=== PATIENT | female | born 1985 | race Caucasian/White ===

== ENCOUNTER 2018-05-22 08:49 | Emergency (ER) | payer OTHER ==
--- NOTE | 2018-05-22 10:24 | XRAY Report ---
Procedure Date: 05/22/2018 Accession Number: [id number] / [id number] Procedure: XR - Elbow 3 View LT CPT Code: FULL RESULT: EXAM: LEFT ELBOW RADIOGRAPHY EXAM DATE: 05/22/2018 09:51 AM. CLINICAL HISTORY: Fall onto left arm. COMPARISON: Left wrist today. TECHNIQUE: 3 views. FINDINGS: Bones: Acute fracture of the capitellum. The capitellum is rotated 90 degrees anteriorly and displaced anteriorly, no longer articulating with the radial head. Proximal radius and ulna are intact. Joints: Moderate elbow joint effusion. Disrupted radiocapitellar joint, as noted above. Soft Tissues: Normal. No soft tissue swelling. IMPRESSION: Acute fracture of the capitellum. The capitellum is rotated 90 degrees anteriorly and displaced anteriorly, no longer articulating with the radial head. RADIA
--- NOTE | 2018-05-22 10:25 | XRAY Report ---
Procedure Date: 05/22/2018 Accession Number: [id number] / [id number] Procedure: XR - Wrist 3 View LT CPT Code: FULL RESULT: EXAM: LEFT WRIST RADIOGRAPHY EXAM DATE: 05/22/2018 09:51 AM. CLINICAL HISTORY: Fell on wrist. COMPARISON: Left wrist today. TECHNIQUE: 3 views. FINDINGS: Bones: Normal. No fractures or bone lesions. Joints: Normal. No subluxations. Soft Tissues: Normal. No soft tissue swelling. IMPRESSION: Normal wrist radiography. RADIA
[2018-05-22] MEDS ORDERED: oxyCOD/ACETAMIN 5 MG/325 MG TABLET PO STA (10:58)
[2018-05-22] MEDS ORDERED: KETOROLAC 60 MG/2 ML VIAL IM STA (11:07)
--- NOTE | 2018-05-22 11:07 | ED Physician Documentation ---
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 - Present Medications Home Medications: Ambulatory Orders Medication Instructions Recorded Confirmed Levothyroxine [Synthroid] 200 mcg PO DAILY 09/06/15 05/22/18 Ibuprofen [Motrin] 400 mg PO Q6H PRN #20 tablet 05/22/18 Oxycodone HCl/Acetaminophen 1 each PO Q6HR PRN #15 tablet 05/22/18 [Percocet 5-325 mg Tablet] Venlafaxine [Effexor] 1 tab PO DAILY 05/22/18 05/22/18 - Allergies Allergies/Adverse Reactions: Allergies Allergy/AdvReac Type Severity Reaction Status Date / Time Sulfa (Sulfonamide Allergy Edema Verified 05/22/18 10:21 Antibiotics) - Social History Does the pt smoke?: No Smoking Status: Never smoker Does the pt drink ETOH?: No Does the pt have substance abuse?: No - Immunizations Immunizations are current?: No - POLST Patient has POLST: No PD ED PE NORMAL - Vitals Vital signs reviewed: Yes - Cardiac Cardiac: RRR - Respiratory Respiratory: No respiratory distress, Clear bilaterally - Extremities Extremities: Other (LUE" shoulder and wrist NT, TTP lateral elbow, very limited ROM, + effuson) Results - Vitals Vitals: Vital Signs - 24 hr 05/22/18 09:08 Temperature 36.5 C Heart Rate 90 Respiratory 16 Rate Blood Pressure 133/87 H O2 Saturation 98 Oxygen O2 Source Room air - Rads (name of study) wrist Radiology: See rad report (normal) elbow Radiology: See rad report (acute fx capitellum and it is completely displaced anterior and rotated 90 degrees) PD MEDICAL DECISION MAKING - ED course ED course: pt seen by Dr Lutz ortho he supervised her splint he needs a special screw for her surgery and cannot oeprate until tomorrow pt to be dced with pain meds to go straight across street to ortho office for preop - Sepsis Event Vital Signs: Vital Signs - 24 hr 05/22/18 09:08 Temperature 36.5 C Heart Rate 90 Respiratory 16 Rate Blood Pressure 133/87 H O2 Saturation 98 Oxygen O2 Source Room air Departure - Departure Disposition: 01 Home, Self Care Clinical Impression: Elbow fracture, left Qualifiers: Encounter type: initial encounter Fracture type: closed Qualified Code(s): S42.402A - Unspecified fracture of lower end of left humerus, initial encounter for closed fracture Condition: Good Instructions: ED Fx Elbow, ED Splint Care Fiberglass Follow-Up: Sarath Lutz MD [Provider Admit Priv/Credential] - (go there right now for pre-op intake ) Prescriptions: Oxycodone HCl/Acetaminophen [Percocet 5-325 mg Tablet] 1 each PO Q6HR PRN #15 tablet PRN Reason: Severe Pain Ibuprofen [Motrin] 400 mg PO Q6H PRN #20 tablet PRN Reason: Pain
[2018-05-22 12:09] VITALS: BP 134/90
--- NOTE | 2018-05-22 17:00 | CONSULTATION NOTE ---
DATE OF SERVICE: 05/22/2018 Physician: Sarath Lutz MD EMERGENCY ROOM CONSULTATION NOTE AND PREOPERATIVE HISTORY AND PHYSICAL NOTE REQUESTING PHYSICIAN: Kasie Morales MD REASON FOR CONSULTATION: Left elbow injury. HISTORY OF PRESENT ILLNESS: Patient is a 33-year-old female who suffered a fall on an outstretched a rm today, injuring her left elbow. The patient reports that she simply turned her head away as she w as walking and stumbled and went down on her outstretched left arm causing elbow injury. Patient pre sented to the emergency room by private vehicle complaining of elbow and arm pain. PAST MEDICAL HISTORY: Patient's prior medical history is reviewed and the patient has had hypothyroi dism. She has anxiety. MEDICATIONS: She is on some medications includin. Levothyroxine 200 mcg p.o. daily. 2. Ibuprofen 400 mg q.6h. p.r.n. 3. Effexor 1 tab p.o. daily. PAST SURGICAL HISTORY: Patient's prior surgeries include . ALLERGIES: SULFA ANTIBIOTICS CAUSING EDEMA. SOCIAL HISTORY: The patient does not smoke and does not drink. She is and has children. He r is presently deployed in [facility]. REVIEW OF SYSTEMS: Negative. Patient has not had recent illness and has been in good physical condi tion in general. PHYSICAL EXAMINATION GENERAL: Patient's physical exam shows her to be alert and she is not in distress. EXTREMITIES: She does complain of elbow pain. Her upper extremity on the left side does not reveal any abrasions or bruising, but there is some swelling about the elbow and tenderness at the radial he ad area and pain with movement of the elbow active and passive. The patient's opposite extremity is normal and lower extremity unremarkable. The patient is able to walk and was not medicated as I exam ined her. DIAGNOSTIC DATA: X-rays obtained reveal a 100% displaced coronal plane fracture through the capitell um with a capitellar articular segment sitting anterior to the elbow joint, which remains located. IMPRESSION: The patient has a closed and completely displaced distal humeral capitellar fracture. M y recommendation to the patient is that she have operative treatment of this injury. After an extens brant discussion with her, it was found that she had more recently had food which would delay her surge ry at least 4 hours and the appropriate headless special screw for surgery would not be available for 6-8 hours at this facility. Therefore, after discussion with her, I placed her in a splint, advised her to return home and my office would work hard with Renetta to obtain authorization for this patie nt to undergo surgery tomorrow. As an alternative, I offered this patient the option of remaining n. p.o. and presenting to a [facility] the [facility] where the screw would be readily av ailable and she could proceed directly to surgical fixation later today, and I would facilitate her d oing so if she chooses but at the present time, she is choosing to have surgery at [facility] a nd we will proceed with the initial plan of gaining authorization and surgery hopefully on 05/23/2018 . TD: 05/22/2018 13:42
== END 2018-05-22 12:22 | disposition home or self-care (01) ==
LOC: ED 08:49
DX: S42.452A Displaced fracture of lateral condyle of left humerus, initial encounter for closed fracture (principal); W01.0XXA Fall on same level from slipping, tripping and stumbling without subsequent striking against object, initial encounter; E03.9 Hypothyroidism, unspecified
CPT/HCPCS: 96372; 99283

== ENCOUNTER 2018-05-23 14:04 | Day surgery (SDC) | payer OTHER ==
[2018-05-23] MEDS ORDERED: LACTATED RINGERS 1,000 ML IV ONE ×2 (14:07→17:06)
[2018-05-23] MEDS ORDERED: ceFAZolin 2 GM/50 ML 2 GM/50 ML BAG IV ONE (14:19)
[2018-05-23] MEDS ORDERED: BUPIVACAINE 0.5%-EPI 1:200000 PF 30 ML VIAL ONE (15:09)
[2018-05-23] MEDS ORDERED: BUPIVACAINE 0.5%-EPI 1:200000 PF 30 ML VIAL SUBQ ONE (15:33)
[2018-05-23] MEDS ORDERED: PROPOFOL 200 MG/20 ML VIAL IVP ONE (16:35)
[2018-05-23] MEDS ORDERED: ROCURONIUM 50 MG/5 ML VIAL IVP ONE (16:35)
[2018-05-23] MEDS ORDERED: LIDOCAINE-MPF 2% 5 ML VIAL IM ONE (16:35)
[2018-05-23] MEDS ORDERED: fentaNYL 100 MCG/2 ML VIAL IVP ONE (16:35)
[2018-05-23] MEDS ORDERED: ONDANSETRON 4 MG/2 ML VIAL ONE (17:04)
[2018-05-23] MEDS ORDERED: ACETAMINOPHEN 1,000 MG/100 ML 100 ML IV ONE (17:10)
[2018-05-23] MEDS ORDERED: HYDROmorphone 0.5 MG/0.5 ML SYRINGE ONE (17:18)
[2018-05-23 17:36] VITALS: BP 129/94
--- NOTE | 2018-05-23 17:44 | OPERATIVE REPORT ---
DATE OF SERVICE: 05/23/2018 Physician: Sarath Lutz MD PREOPERATIVE DIAGNOSIS: Displaced left elbow capitellar fracture. POSTOPERATIVE DIAGNOSIS: Displaced left elbow capitellar fracture. PROCEDURE PERFORMED: Open reduction internal fixation of left elbow capitellum fracture. OPERATING SURGEON: Sarath Lutz MD ANESTHESIA: General by Dr. Almanzar. INDICATIONS FOR SURGERY: Patient is a 32-year-old female status post a fall on her left arm yesterda y suffering a completely displaced fracture of the capitellum articular surface. The patient was see n and evaluated and prepared for surgery, and special instruments were brought in for planned surgery today. The patient did not have neurologic compromise, but had pain in her elbow after the fracture and was immobilized. She had not had previous elbow problems. FINDINGS AT SURGERY: Patient's elbow had a displaced capitellum sitting in the superior aspect and a nterior aspect of the joint. There was no damage to the radial head and the joint was located. Othe rwise, the fragment was tethered by a small ligamentous or soft tissue attachment which was not divid ed. The elbow was full of hemorrhage and most of it clotted. DESCRIPTION OF OPERATIVE PROCEDURE: Patient was taken to the operating room. She was given a genera l anesthetic. She was positioned supine. Her left elbow was sterilely prepped and draped in standar d fashion. A tourniquet was not used. The elbow was sterilely prepped and draped and then a surgica l timeout was undertaken, after which a marking pen defined the lateral incision along a Chasity appro ach. The incision was taken through the skin and subcutaneous tissue down to the fascial layer. The incision was then deepened along the course of the lateral epicondyle extending down to the area of the radial head. A very careful dissection was made along the course of this area to expose the elbo w joint with the landmark somewhat distorted by the displaced capitellum. Once the safe entry was ma de with arthrotomy, the elbow was irrigated thoroughly and clot removed, and the fragment was rotated back into position and with some leverage of the elbow into varus, it allowed placement of the fragm ent in place and once in place, a K-wire was used transcutaneous into the epicondyle to stabilize thi s. Following this, the Jose screw system with headless screws and variable patch were used. Two s crews, one 24 mm, one 20 right off the articular margins placed over K-wires and cannulated and sunk into the bone and countersunk. This allowed excellent fixation of the fracture. K-wire was removed. C-arm images confirmed the reduction and placement of the screws. The area was irrigated thoroughl y. Bleeding was controlled with cautery and closure was undertaken with 0 Vicryl in the deep layers of fascia overlying muscle followed by the subcutaneous Vicryl closure interrupted and a Monocryl abril sure of skin. A sterile silver-containing dressing was applied, followed by cast padding, and the pa tient was fitted in a posterior arm splint. She was taken to the recovery room in stable condition. ESTIMATED BLOOD LOSS: 40 or 50 mL. COMPLICATIONS: There were no complications. COUNTS: Sponge and needle counts were correct. TD: 05/23/2018 17:01
[2018-05-23] MEDS ORDERED: oxyCOD/ACETAMIN 5 MG/325 MG TABLET PO PRN (18:52)
[2018-05-23] MEDS ORDERED: LACTATED RINGERS 1,000 ML IV SCH (19:00)
== END 2018-05-23 20:00 | disposition home or self-care (01) ==
LOC: SDS 14:04 → OBS 16:30 → SDS 20:00
PROVIDERS: ATTEND Orthopaedic Surgery
PROC: 0PSG04Z Reposition Left Humeral Shaft with Internal Fixation Device, Open Approach (ICD-10-PCS; principal; 2018-05-23 15:00)
DX: S42.452A Displaced fracture of lateral condyle of left humerus, initial encounter for closed fracture (principal); E03.9 Hypothyroidism, unspecified
CPT/HCPCS: 24586; A9270; J0131; J0690; J1170; J7120

== ENCOUNTER 2018-05-24 22:35 | Emergency (ER) | payer OTHER ==
[2018-05-24] MEDS ORDERED: ONDANSETRON ODT 4 MG TABLET TL STA (23:05)
[2018-05-24] MEDS ORDERED: HYDROmorphone 1 MG/ML CARPUJECT IM STA (23:05)
[2018-05-24] MEDS ORDERED: ACETAMINOPHEN 500 MG TABLET PO STA (23:18)
[2018-05-24] MEDS ORDERED: SODIUM CHLORIDE 0.9% 1,000 ML IV ONE (23:18)
[2018-05-24 23:43] LABS: BASOPHILS % (AUTO) 0.6 %; EOSINOPHILS # (AUTO) 0.2 10^3/uL (0.0-0.7); EOSINOPHILS % (AUTO) 2.2 %; HGB - HEMOGLOBIN 10.2 g/dL (12.0-16.0); LYMPHOCYTES # (AUTO) 1.9 10^3/uL (1.5-3.5); LYMPHOCYTES % (AUTO) 23.9 %; MEAN CORPUSCULAR HEMOGLOBIN 25.4 pg (27.0-31.0); MEAN CORPUSCULAR HGB CONC 33.4 g/dL (32.0-36.0); MEAN CORPUSCULAR VOLUME 75.9 fL (81.0-99.0); MONOCYTES # (AUTO) 0.7 10^3/uL (0.0-1.0); MONOCYTES % (AUTO) 8.6 %; NEUTROPHILS # (AUTO) 5.3 10^3/uL (1.5-6.6); NEUTROPHILS % (AUTO) 64.7 %; PLT - PLATELET COUNT 260 10^3/uL (130-450); RED BLOOD COUNT 4.03 10^6/uL (4.20-5.40); RED CELL DISTRIBUTION WIDTH 14.6 % (12.0-15.0); WHITE BLOOD COUNT 8.2 x10^3/uL (4.8-10.8)
[2018-05-24 23:48] LABS: CALCIUM 8.7 mg/dL (8.5-10.3); CREATININE 0.8 mg/dL (0.4-1.0)
--- NOTE | 2018-05-25 00:27 | XRAY Report ---
Procedure Date: 05/24/2018 Accession Number: [id number] / [id number] Procedure: XR - Elbow 2 View LT CPT Code: FULL RESULT: EXAM: LEFT ELBOW RADIOGRAPHY EXAM DATE: 05/24/2018 11:50 PM. CLINICAL HISTORY: Pain and swelling. COMPARISON: ELBOW 3 VIEW LT 05/22/2018. TECHNIQUE: 3 views. FINDINGS: Bones: Screw fixation of the capitellum fracture. Normal alignment. Joints: Normal. No effusion. No subluxation. Soft Tissues: Soft tissue swelling and a small amount of postoperative gas in the lateral soft tissues. IMPRESSION: Postoperative changes of fracture fixation. RADIA
[2018-05-25 01:22] VITALS: BP 137/75
--- NOTE | 2018-05-25 01:30 | Ultrasound Report ---
Procedure Date: 05/25/2018 Accession Number: [id number] / [id number] Procedure: US - Duplex Venous Limited CPT Code: FULL RESULT: EXAM: LEFT UPPER EXTREMITY VENOUS ULTRASOUND EXAM DATE: 05/25/2018 12:44 AM. CLINICAL HISTORY: Left arm swelling and pain. COMPARISON: None. TECHNIQUE: Real-time sonographic vascular imaging was performed by the counseling services manager through the upper extremity utilizing both color-flow and Doppler spectral analysis. Multiple community representative static images were saved for review. FINDINGS: Internal Jugular Vein (IJV): Normal. Subclavian Vein (SCV): Normal. Axillary Vein : Normal. Cephalic Vein (superficial vein): Normal. Basilic Vein (superficial vein): Normal. Brachial Vein: Normal. Other: None. IMPRESSION: No evidence for deep vein thrombosis. RADIA
--- NOTE | 2018-05-25 01:42 | ED Physician Documentation ---
History of Present Illness - Stated complaint Stated Complaint: POST SURG LT ARM PX/FEVER - Chief complaint Chief Complaint: Fever - History obtained from History obtained from: Patient - Additonal information Additional information: 32-year-old female presents the emergency department for evaluation of increasing left elbow pain. The patient is status post ORIF 1 day ago, the patient was discharged home and has subsequently developed increasing pain in her elbow and arm. The patient has not been taking her Percocet because it has been making her nauseous. The patient reports having a fever at home of 102. The patient denies wound drainage. Symptoms are described as moderate. No other associated symptoms. 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 - Present Medications Home Medications: Ambulatory Orders Medication Instructions Recorded Confirmed Levothyroxine [Synthroid] 200 mcg PO DAILY 09/06/15 05/23/18 Ibuprofen [Motrin] 400 mg PO Q6H PRN #20 tablet 05/22/18 05/23/18 Venlafaxine [Effexor] 1 tab PO DAILY 05/22/18 05/23/18 oxyCODONE/ACET 5/325 [Percocet 5 1 - 2 tab PO Q4HR PRN 05/24/18 05/24/18 mg/325 mg] Ondansetron Odt [Zofran] 4 mg TL Q6H PRN #30 tablet 05/25/18 - Allergies Allergies/Adverse Reactions: Allergies Allergy/AdvReac Type Severity Reaction Status Date / Time Sulfa (Sulfonamide Allergy Edema Verified 05/24/18 22:49 Antibiotics) - Social History Does the pt smoke?: No Smoking Status: Never smoker Does the pt drink ETOH?: No Does the pt have substance abuse?: No - Immunizations Immunizations are current?: No - POLST Patient has POLST: No PD ED PE NORMAL - General General: Alert and oriented X 3, No acute distress - HEENT HEENT: Atraumatic, PERRL, EOMI, Ears normal - Cardiac Cardiac: RRR, Strong equal pulses - Respiratory Respiratory: No respiratory distress - Extremities Extremities: Other (The patient's splint and cast padding were removed, the dressing over the surgical incision was also removed. The surgical incision is clean dry and intact. There is normal postoperative erythema. There is no evidence of wound drainage, redness or other signs of acute postoperative infection. The patient is tender throughout her whole upper extremity. The patient has normal distal sensation light touch. The patient has brisk cap refill. The patient has no pain on passive range of motion of the distal extremity. The patient has a normal radial pulse.) - Neuro Neuro: Alert and oriented X 3, Normal speech - Psych Psych: Normal mood PD ED PE EXPANDED - General General: In Pain - Cardiac Cardiac: Tachy Results - Vitals Vitals: Vital Signs - 24 hr 05/24/18 05/24/18 05/25/18 22:35 23:33 00:29 Temperature 37.4 C 37.9 C H 37.1 C Heart Rate 115 H 107 H 97 Respiratory 18 18 16 Rate Blood Pressure 140/80 H 144/87 H 149/87 H O2 Saturation 100 98 96 05/25/18 01:21 Temperature 36.9 C Heart Rate 98 Respiratory 15 Rate Blood Pressure 137/75 H O2 Saturation 96 Oxygen O2 Source Room air - Labs Labs: Laboratory Tests 05/24/18 05/24/18 05/24/18 23:30 23:30 23:30 WBC 8.2 RBC 4.03 L Hgb 10.2 L Hct 30.6 L MCV 75.9 L MCH 25.4 L MCHC 33.4 RDW 14.6 Plt Count 260 MPV 8.0 Neut # (Auto) 5.3 Lymph # (Auto) 1.9 Eaton # (Auto) 0.7 Eos # (Auto) 0.2 Baso # (Auto) 0.0 Absolute Nucleated RBC 0.00 Nucleated RBC % 0.0 Sodium 136 Potassium 3.6 Chloride 104 Carbon Dioxide 26 Anion Gap 6.0 BUN 9 Creatinine 0.8 Estimated GFR (MDRD) 83 L Glucose 146 H Lactic Acid 1.5 Calcium 8.7 - Rads (name of study) US L upper EXT Radiology: Final report received XR left elbow Radiology: Final report received PD MEDICAL DECISION MAKING - ED course ED course: The case was discussed with the on-call orthopedic surgeon Dr. Michael. The patient's recent surgical procedure and presentation and findings were discussed. Currently, she does not think a compartment syndrome is likely. She agrees with the plan and recommends pain management and follow-up as an outpatient. On final evaluation the patient is resting comfortably and her symptoms were under much better control. The patient's workup did not reveal evidence of a DVT and her lab work is not suggestive of an acute infection nor is her physical exam. Her fever may be secondary to a fracture fever. The patient currently appears appropriate for discharge home and ongoing outpatient management. I discussed with her warning signs and recommended returning to the emergency department immediately for worsening or any concerns. - Sepsis Event Vital Signs: Vital Signs - 24 hr 05/24/18 05/24/18 05/25/18 22:35 23:33 00:29 Temperature 37.4 C 37.9 C H 37.1 C Heart Rate 115 H 107 H 97 Respiratory 18 18 16 Rate Blood Pressure 140/80 H 144/87 H 149/87 H O2 Saturation 100 98 96 05/25/18 01:21 Temperature 36.9 C Heart Rate 98 Respiratory 15 Rate Blood Pressure 137/75 H O2 Saturation 96 Oxygen O2 Source Room air Departure - Departure Disposition: 01 Home, Self Care Clinical Impression: Post-operative pain Condition: Good Instructions: ED Pain Control Ch Follow-Up: Sarath Lutz MD [Provider Admit Priv/Credential] - Within 3 Days Prescriptions: Ondansetron Odt [Zofran] 4 mg TL Q6H PRN #30 tablet PRN Reason: Nausea / Vomiting Comments: Please return to the emergency department immediately for worsening or any concerns
== END 2018-05-25 01:50 | disposition home or self-care (01) ==
LOC: ED 22:35
DX: G89.18 Other acute postprocedural pain (principal)
CPT/HCPCS: 36415; 73070; 80048; 83605; 85025; 87040; 93971; 96360; 96372; 99283; 99284; A9270; J1170; Q0162

== ENCOUNTER 2018-08-23 18:11 | Emergency (ER) | payer OTHER ==
[2018-08-23] MEDS ORDERED: IPRATROPIUM/ALBUTEROL 3 ML NEB INH STA (18:34)
[2018-08-23] MEDS ORDERED: BENZONATATE 100 MG CAPSULE PO STA (18:35)
--- NOTE | 2018-08-23 19:02 | ED Physician Documentation ---
PD HPI URI - Stated complaint Stated Complaint: WHEEZING/COUGH - Chief complaint Chief Complaint: Resp - History obtained from History obtained from: Patient - History of Present Illness Timing - onset: How many days ago (4) Timing duration: Days (4) Timing details: Gradual onset Pain level max: 0 Pain level now: 0 Associated symptoms: Fever (subjective), Nasal congestion, Rhinorrhea, Dry cough, Dyspnea (wheezing) Contributing factors: Sick contact Improves by: Rest Worsened by: Activity, Breathing Recently seen: Not recently seen Review of Systems Nose: reports: Rhinorrhea / runny nose, Congestion Respiratory: reports: Cough GI: denies: Vomiting : denies: Dysuria, Frequency, Hesitancy, Now EGA Skin: denies: Rash Musculoskeletal: denies: Neck pain, Back pain PD PAST MEDICAL HISTORY - Past Medical History Cardiovascular: None Respiratory: None Endocrine/Autoimmune: HyPOthyroidism GI: None :  HEENT: None Psych: Depression, Anxiety, Panic attacks Musculoskeletal: None - Past Surgical History 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 - Present Medications Home Medications: Ambulatory Orders Medication Instructions Recorded Confirmed Levothyroxine [Synthroid] 200 mcg PO DAILY 09/06/15 05/23/18 Venlafaxine [Effexor] 1 tab PO DAILY 05/22/18 05/23/18 Albuterol Sulf [Ventolin Hfa 1 - 2 puffs INH Q4HR PRN #1 inhaler 08/23/18 Inhaler] Benzonatate [Tessalon Perle] 100 - 200 mg PO TID PRN #30 capsule 08/23/18 Cetirizine HCl/Pseudoephedrine 1 each PO BID PRN #30 tab.er.12h 08/23/18 [Zyrtec-D Tablet] - Allergies Allergies/Adverse Reactions: Allergies Allergy/AdvReac Type Severity Reaction Status Date / Time Sulfa (Sulfonamide Allergy Edema Verified 08/23/18 18:17 Antibiotics) - Social History Does the pt smoke?: No Smoking Status: Never smoker Does the pt drink ETOH?: No Does the pt have substance abuse?: No - Immunizations Immunizations are current?: No - POLST Patient has POLST: No PD ED PE NORMAL - Vitals Vital signs reviewed: Yes - General General: Alert and oriented X 3, No acute distress, Well developed/nourished - HEENT HEENT: PERRL, Ears normal, Moist mucous membranes, Pharynx benign, Other (Clear rhinorrhea) - Neck Neck: Supple, no meningeal sign, No adenopathy - Cardiac Cardiac: RRR, Strong equal pulses - Respiratory Respiratory: No respiratory distress, Other (Mild wheeze bilaterally) - Abdomen Abdomen: Soft, Non tender, Non distended - Derm Derm: Warm and dry - Neuro Neuro: Alert and oriented X 3 - Psych Psych: Normal mood, Normal affect Results - Vitals Vitals: Vital Signs - 24 hr 08/23/18 08/23/18 08/23/18 18:15 19:15 19:26 Temperature 36.5 C Heart Rate 123 H 109 H 108 H Respiratory 18 22 22 Rate Blood Pressure 151/77 H 139/85 H O2 Saturation 100 98 Oxygen O2 Source Room air PD MEDICAL DECISION MAKING - ED course Complexity details: considered differential, d/w patient ED course: Patient is a 33-year-old female with what appears to be a viral upper respiratory infection. She is very well-appearing, nontoxic. Afebrile. No hypoxia. No respiratory distress. Feels better after nebulizer treatment. Will prescribe an inhaler for home. Also placed on cough medication and decongestants. No evidence of pneumonia. Patient counseled regarding signs and symptoms for which I believe and urgent re-evaluation would be necessary. Patient with good understanding of and agreement to plan and is comfortable going home at this time This document was made in part using voice recognition software. While efforts are made to proofread this document, sound alike and grammatical errors may occur. Departure - Departure Disposition: 01 Home, Self Care Clinical Impression: Viral URI Condition: Good Instructions: ED URI Viral W Wheezing Follow-Up: your,doctor in 1 week [Other] Prescriptions: Albuterol Sulf [Ventolin Hfa Inhaler] 1 - 2 puffs INH Q4HR PRN #1 inhaler PRN Reason: Shortness Of Air/Wheezing Benzonatate [Tessalon Perle] 100 - 200 mg PO TID PRN #30 capsule PRN Reason: Cough Cetirizine HCl/Pseudoephedrine [Zyrtec-D Tablet] 1 each PO BID PRN #30 tab.er.12h PRN Reason: Nasal Congestion Comments: Use the medications as prescribed. Return if you worsen. This will likely last for another week. Discharge Date/Time: 08/23/18 19:31
[2018-08-23 19:29] VITALS: BP 139/85
== END 2018-08-23 19:31 | disposition home or self-care (01) ==
LOC: ED 18:11
DX: J06.9 Acute upper respiratory infection, unspecified (principal); B97.89 Other viral agents as the cause of diseases classified elsewhere; E03.9 Hypothyroidism, unspecified
CPT/HCPCS: 94640; 94664; 99283; A9270

== ENCOUNTER 2018-09-03 17:27 | Emergency (ER) | payer OTHER ==
[2018-09-03 17:37] VITALS: BP 102/67
--- NOTE | 2018-09-03 18:47 | ED Physician Documentation ---
PD HPI URI - Stated complaint Stated Complaint: COUGH - Chief complaint Chief Complaint: Resp - History obtained from History obtained from: Patient - History of Present Illness Timing - onset: How many weeks ago (3) Timing duration: Weeks (3) Timing details: Gradual onset, Still present (had has cough and sputum 3 weeks ago and seen in ER 2 weeks ago with Rx for abx. Sputum better but still with cough that keeps her awake. No improvement with Tessalon and inhaler. Feels scratchy throat as well.) Associated symptoms: Sore throat, Productive cough, Dyspnea. No: Fever Contributing factors: No: COPD / asthma Worsened by: Activity, Position (has worse cough at night and lying down. Poor sleep for 2 weeks.) Similar symptoms before: Has not had sx before Recently seen: Emergency Dept (2 weeks ago, Rx abx and Tessalon) Review of Systems Constitutional: reports: Fatigue. denies: Fever, Chills Nose: reports: Congestion Throat: reports: Sore throat Cardiac: denies: Chest pain / pressure Respiratory: reports: Cough. 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 - Present Medications Home Medications: Ambulatory Orders Medication Instructions Recorded Confirmed Levothyroxine [Synthroid] 200 mcg PO DAILY 09/06/15 05/23/18 Venlafaxine [Effexor] 1 tab PO DAILY 05/22/18 05/23/18 Albuterol Sulf [Ventolin Hfa 1 - 2 puffs INH Q4HR PRN #1 inhaler 08/23/18 Inhaler] Benzonatate [Tessalon Perle] 100 - 200 mg PO TID PRN #30 capsule 08/23/18 Cetirizine HCl/Pseudoephedrine 1 each PO BID PRN #30 tab.er.12h 08/23/18 [Zyrtec-D Tablet] Dexamethasone [Decadron] 4 mg PO DAILY #5 tablet 09/03/18 Hydrocodone/Acetaminophen [[place] 1 each PO Q6H PRN #15 tablet 09/03/18 5-325 Tablet] Lidocaine Viscous 2% [Xylocaine 5 - 10 ml MM Q4H PRN #1 bottle 09/03/18 Viscous 2%] - Allergies Allergies/Adverse Reactions: Allergies Allergy/AdvReac Type Severity Reaction Status Date / Time Sulfa (Sulfonamide Allergy Edema Verified 09/03/18 17:37 Antibiotics) - Social History Does the pt smoke?: No Smoking Status: Never smoker Does the pt drink ETOH?: No Does the pt have substance abuse?: No - Immunizations Immunizations are current?: No - POLST Patient has POLST: No PD ED PE NORMAL - Vitals Vital signs reviewed: Yes - General General: Alert and oriented X 3, No acute distress (some harsh coughing here. ), Well developed/nourished - HEENT HEENT: Ears normal, Pharynx benign - Neck Neck: Supple, no meningeal sign, No adenopathy - Cardiac Cardiac: RRR, No murmur - Respiratory Respiratory: Clear bilaterally - Abdomen Abdomen: Soft, Non tender Results - Vitals Vitals: Oxygen O2 Source Room air PD MEDICAL DECISION MAKING - ED course Complexity details: reviewed old records, considered differential (had URI symptoms and now with persistent annoying cough. Does not sound like persistent infection. ), d/w patient Departure - Departure Disposition: 01 Home, Self Care Clinical Impression: Persistent cough Upper respiratory infection Qualifiers: URI type: unspecified URI Qualified Code(s): J06.9 - Acute upper respiratory infection, unspecified Condition: Stable Record reviewed to determine appropriate education?: Yes Prescriptions: Dexamethasone [Decadron] 4 mg PO DAILY #5 tablet Hydrocodone/Acetaminophen [[place] 5-325 Tablet] 1 each PO Q6H PRN #15 tablet PRN Reason: Pain Lidocaine Viscous 2% [Xylocaine Viscous 2%] 5 - 10 ml MM Q4H PRN #1 bottle PRN Reason: Pain Comments: Use the Decadron steroid for inflammation of the airways and this should decrease the cough and irritation over the next few days. Cough medicine as needed. Sometimes the cough is from the throat to be an irritated and you can use an lidocaine viscus followed with some antacid and that will often help the cough as well. Recheck if not improving over the next few days. Discharge Date/Time: 09/03/18 19:37
[2018-09-03] MEDS ORDERED: LIDOCAINE VISCOUS 2% 15 ML UDC MM STA (19:19)
[2018-09-03] MEDS ORDERED: DEXAMETHASONE 10 MG/ML VIAL PO STA (19:19)
[2018-09-03] MEDS ORDERED: MAG HYDROX/AL HYDROX/SIMETH 30 ML UDC PO STA (19:20)
[2018-09-03] MEDS ORDERED: CHERRY SYRUP 10 ML UDC PO ONE (19:26)
== END 2018-09-03 19:37 | disposition home or self-care (01) ==
LOC: ED 17:27
DX: R05 Cough (principal); J06.9 Acute upper respiratory infection, unspecified
CPT/HCPCS: 99283; A9270

== ENCOUNTER 2020-07-22 10:08 | Emergency (ER) | payer OTHER ==
--- NOTE | 2020-07-22 10:24 | ED Physician Documentation ---
History of Present Illness - Stated complaint Stated Complaint: BODY RASH - Chief complaint Chief Complaint: General - History obtained from History obtained from: Patient - Additonal information Additional information: 6 days of quite itchy hives. Started on the trunk, now mostly on the extremities. No clear cause. No shortness of breath. No new medications. 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 - Present Medications Home Medications: Ambulatory Orders Medication Instructions Recorded Confirmed Levothyroxine [Synthroid] 200 mcg PO DAILY 09/06/15 05/23/18 Venlafaxine [Effexor] 1 tab PO DAILY 05/22/18 05/23/18 Albuterol Sulf [Ventolin Hfa 1 - 2 puffs INH Q4HR PRN #1 inhaler 08/23/18 Inhaler] Benzonatate [Tessalon Perle] 100 - 200 mg PO TID PRN #30 capsule 08/23/18 Cetirizine HCl/Pseudoephedrine 1 each PO BID PRN #30 tab.er.12h 08/23/18 [Zyrtec-D Tablet] Hydrocodone/Acetaminophen [[place] 1 each PO Q6H PRN #15 tablet 09/03/18 5-325 Tablet] Lidocaine Viscous 2% [Xylocaine 5 - 10 ml MM Q4H PRN #1 bottle 09/03/18 Viscous 2%] dexAMETHasone [Decadron] 4 mg PO DAILY #5 tablet 09/03/18 Doxepin [SINEquan] 10 mg PO TID PRN #20 capsule 07/22/20 predniSONE [Deltasone] 20 mg PO [id number] #21 tab 07/22/20 - Allergies Allergies/Adverse Reactions: Allergies Allergy/AdvReac Type Severity Reaction Status Date / Time Sulfa (Sulfonamide Allergy Edema Verified 07/22/20 10:11 Antibiotics) - Social History Does the pt smoke?: No Smoking Status: Never smoker Does the pt drink ETOH?: No Does the pt have substance abuse?: No - Immunizations Immunizations are current?: No - POLST Patient has POLST: No PD ED PE NORMAL - Vitals Vital signs reviewed: Yes - General General: Alert and oriented X 3, No acute distress - HEENT HEENT: Pharynx benign - Derm Derm: Other (She has urticaria on the lower trunk, extensor surfaces of the arms, intertriginous areas. No evidence of superinfection. There is some excoriation.) - Neuro Neuro: Alert and oriented X 3, Normal speech Results - Vitals Vitals: Vital Signs - 24 hr 07/22/20 10:11 Temperature 36.4 C L Heart Rate 83 Respiratory 18 Rate Blood Pressure 135/91 H O2 Saturation 100 Oxygen O2 Source Room air Departure - Departure Disposition: Home, Self Care Clinical Impression: Urticaria Condition: Good Record reviewed to determine appropriate education?: Yes Instructions: ED Urticaria Prescriptions: predniSONE [Deltasone] 20 mg PO [id number] #21 tab Doxepin [SINEquan] 10 mg PO TID PRN #20 capsule PRN Reason: Itching Comments: [facility] [place] Follow-up with your primary care physician. Consider referral for allergy testing if this becomes a recurrent issue. Return if worse.
[2020-07-22 10:33] VITALS: BP 135/92
== END 2020-07-22 10:37 | disposition home or self-care (01) ==
LOC: ED 10:08
DX: L50.9 Urticaria, unspecified (principal)
CPT/HCPCS: 99282; 99283